=== PATIENT | male | born 1995 | race Caucasian/White ===

== ENCOUNTER 2016-06-07 18:06 | Emergency (ER) | payer OTHER ==
[~2016-06-07] VITALS: Ht 180.3 cm; Wt 89.3 kg
[2016-06-07 18:05] VITALS: Ht 180.3 cm; Wt 89.3 kg
[2016-06-07] MEDS ORDERED: LIDO/EPINEPHRINE/SOD BICARB 20 ML VIAL INFIL ONE (18:15)
--- NOTE | 2016-06-07 18:17 | EMERGENCY ROOM VISIT NOTE ---
History Report prepared by Eliana: Nick Engle Under the Supervision of: Dr. Mike López M.D. First contact with patient: 18:07 Chief Complaint: ALCOHOL OVERDOSE Stated Complaint: ETOH History of Present Illness The patient is a 19 year old male who presents to the Emergency Room via EMS with complaints of a persistent alcohol overdose that started prior to arrival today. The patient fell while intoxicated, and hit his face on the concrete ground and suffered a facial injury. He had a neck brace put on by EMS. He says that he fell because he was too drunk. The patient's friend who is here with him witnessed the fall. The patient's friend denies that the friend lost consciousness. The patient denies any neck pain, chest pain, wrist pain, knee pain or any other pain. He notes no chronic health issues. His tetanus status is current. Source of History: patient, friend Onset: Prior to arrival today Position: other (global - alcohol intoxication) Timing: other (persistent) Associated Symptoms: No LOC, No chest pain, No neck pain Note: Associated symptoms: Fell on face on concrete ground. Suffered facial injury. Denies wrist pain or any other pain. Review of Systems See HPI for pertinent positives & negatives. A total of 10 systems reviewed and were otherwise negative. Past Medical & Surgical Medical Problems: (1) No chronic problems Family History No pertinent family history Social History Smoking Status: Current Some Day Smoker Alcohol Use: occasionally Marital Status: single Housing Status: lives with roommate Occupation Status: employed Current/Historical Medications Scheduled Amoxicillin & Pot Clavulanate (Augmentin 875-125 mg), 875 MG PO BID Allergies Coded Allergies: No Known Allergies (Unverified , 06/07/16) Physical Exam Vital Signs Date Time Temp Pulse Resp B/P Pulse Ox O2 Delivery O2 Flow Rate FiO2 06/07/16 21:29 80 16 122/57 96 06/07/16 20:05 69 18 123/57 93 Room Air 06/07/16 18:05 91 18 154/83 97 Room Air Physical Exam GENERAL: Patient is in no acute distress. HEENT: Abrasion to tip of nose. Stellate 1.5 cm laceration to mid-lip that is not through and through. Upper lip is edematous. Fracture to the left upper 1st incisor, no bleeding at gumline. Lower teeth intact. 1 cm vertical laceration to mid left chin with associated abrasion. Pupils equal and reactive to light, no facial bony stepoff. No scalp hematomas. NECK: No posterior c-spine tenderness or step-offs. Stiff color removed. LUNGS: Clear to auscultation bilaterally, no wheeze, no rhonchi, breath sounds equal. HEART: Without murmurs gallops or rubs, regular rate and rhythm. ABDOMEN: Soft, nontender, bowel sounds positive, no hernias, no peritonitis. EXTREMITIES: No cyanosis or edema, full range of motion of all the joints without pain or difficulty, no signs for acute trauma. NEUROLOGIC: Awake and alert, moderately intoxicated with alcohol, no focal motor deficits. SKIN: No rash, no jaundice, no diaphoresis. Medical Decision & Procedures ER Provider Diagnostic Interpretation: CT results as stated below per my review and radiologist interpretation: CT FACIAL BONES-MXILLOFAC WITHOUT CT DOSE: 973.57 mGy.cm CLINICAL HISTORY: Facial pain status post trauma COMPARISON STUDY: No previous studies for comparison. TECHNIQUE: Helical images were acquired in the transverse plane. The study was reviewed and analyzed on the independent 3-D workstation. The pterygoid plates appear intact. The zygomatic arches appear intact. The globes appear intact. There is no evidence of orbital emphysema. The orbital miramontes and floor appear intact. The mandibular condyles appear intact. There is bilateral maxilla sinus mucosal thickening. IMPRESSION: No facial fractures identified. Electronically signed by: Pavan Garcia M.D. 06/07/2016 7:03 PM Dictated Date/Time: 06/07/2016 7:[address] HEAD WITHOUT CONTRAST (CT) CLINICAL HISTORY: Head pain status post trauma. Ethanol intoxication COMPARISON STUDY: No previous studies for comparison. TECHNIQUE: Axial CT of the brain is performed from the vertex to the skull base. IV contrast was not administered for this examination. CT DOSE: FINDINGS: No intra or extra-axial mass lesions are visualized. There is no CT evidence of acute cortical infarction. There is no evidence of midline shift. There is no acute hemorrhage. No calvarial fractures are visualized. There is mild disconjugate ocular gaze. There is no evidence of pathologic ventricular dilatation. There is a prominent cisterna magna. There is no evidence of acute sinusitis IMPRESSION: Mild disconjugate ocular gaze. Otherwise unremarkable noncontrast head CT. Electronically signed by: Pavan Garcia M.D. 06/07/2016 6:58 PM Dictated Date/Time: 06/07/2016 6:[address] OF THE CERVICAL SPINE CLINICAL HISTORY: Neck pain status post trauma COMPARISON STUDY: No previous studies for comparison. CT DOSE: TECHNIQUE: CT scan of the cervical spine was performed from the skull base to the thoracic inlet. Images are reviewed in the axial, sagittal, and coronal planes. IV contrast was not administered for this examination. FINDINGS: The visualized portions of the lung apices reveal no evidence of pneumothorax. The prevertebral soft tissues are normal. No fractures or subluxations are visualized. IMPRESSION: No evidence of acute fracture or traumatic subluxation. Electronically signed by: Pavan Garcia M.D. 06/07/2016 7:01 PM Dictated Date/Time: 06/07/2016 7:00 PM Laboratory Results 06/07/16 19:15 Test 06/07/16 19:15 Anion Gap 10.0 mmol/L (3-11) Est Creatinine Clear Calc Drug Dose 111.2 ml/min Estimated GFR () 109.1 Estimated GFR (Non- 94.1 BUN/Creatinine Ratio 7.7 (10-20) Calcium Level 8.1 mg/dl (8.5-10.1) Chemistry Specimen Hemolysis Ethyl Alcohol mg/dL 348.0 mg/dl (0-3) Laboratory results reviewed by me. Medications Administered Medications (Trade) Dose Ordered Sig/Fred Route Start Time Stop Time Status Last Admin Dose Admin Lidocaine/ Epinephrine (Buffered Xylocaine/ Epinephrine 1% Inj) 20 ml NOW ONCE INFIL 06/07/16 18:15 06/07/16 18:18 DC 06/07/16 19:00 20 ML Amoxicillin/ Clavulanate Potassium (Augmentin Tab) 875 mg NOW ONCE PO 06/07/16 19:30 06/07/16 19:31 DC 06/07/16 19:42 875 MG ED Course 1806: The patient was evaluated in room B11B. A complete history and physical exam was performed. 1814: Ordered Buffered Xylocaine/Epinephrine 1% Inj 20 ml INFIL. 1924: Brandie Ramos PA-C - did the lip laceration on the patient. 1929: Ordered Augmentin Tab 875 mg PO. 2008: I reevaluated the patient and he is sleeping right now. We are going to wait for his alcohol level. 2122: I reevaluated the patient and he is feeling fine and ready to go home. The patient verbally expressed understanding and agreement of the treatment plan. The patient will be discharged. Medical Decision Differential diagnosis includes but is not limited to facial fracture, c-spine fracture, intracranial bleeding or skull fracture, alcohol intoxication, dehydration, chest abdominal or extremity trauma. The patient presents after a fall. He had some lacerations to his face and he had a fracture to the left upper first incisor. He was drinking alcohol earlier and seemed intoxicated. I could not find evidence for injury to the chest, back, extremities. Brain CT shows no acute bleed or mass effect. C- spine CT shows no acute fracture. Facial CT shows no acute fracture. The patient was given oral Augmentin for antibiotic coverage. His wounds were cleansed and closed by my PA, please see her note. The patient is being discharged to follow with a dentist for his tooth fracture. Sutures of the face can be removed in 5-7 days. He will be on Augmentin to prevent infection. He can return for any worsening symptoms. The patient was told to keep his wounds clean and to watch for infection. He was told that his facial lacerations would scar. Impression Primary Impression: Alcohol overdose Additional Impressions: Facial trauma Dental fracture Fall Scribe Attestation The scribe's documentation has been prepared under my direction and personally reviewed by me in its entirety. I confirm that the note above accurately reflects all work, treatment, procedures, and medical decision making performed by me. Departure Information Dispostion Home / Self-Care Prescriptions Amoxicillin & Pot Clavulanate (Augmentin 875-125 mg) 1 Tab Tab 875 MG PO BID for 7 Days, #14 TAB Prov: Mike López M.D. 06/07/16 Forms HOME CARE DOCUMENTATION FORM, IMPORTANT VISIT INFORMATION Patient Instructions My [facility] Profitect Additional Instructions augmentin 2x per day for 1 week keep out of the sun to reduce scaring keep areas clean with soap and water sutures out in 5-7 days return for redness or worsening symptoms must see a dentist for your tooth harriet motrin or tylenol for pain these cuts will scar---consider seeing a plastic surgeon if you are unhappy with the result Problem Qualifiers
--- NOTE | 2016-06-07 19:00 | DIAGNOSTIC IMAGING REPORT ---
CT HEAD WITHOUT CONTRAST (CT) CLINICAL HISTORY: Head pain status post trauma. Ethanol intoxication COMPARISON STUDY: No previous studies for comparison. TECHNIQUE: Axial CT of the brain is performed from the vertex to the skull base. IV contrast was not administered for this examination. CT DOSE: FINDINGS: No intra or extra-axial mass lesions are visualized. There is no CT evidence of acute cortical infarction. There is no evidence of midline shift. There is no acute hemorrhage. No calvarial fractures are visualized. There is mild disconjugate ocular gaze. There is no evidence of pathologic ventricular dilatation. There is a prominent cisterna magna. There is no evidence of acute sinusitis IMPRESSION: Mild disconjugate ocular gaze. Otherwise unremarkable noncontrast head CT. Electronically signed by: Pavan Garcia M.D. 06/07/2016 6:58 PM Dictated Date/Time: 06/07/2016 6:56 PM
--- NOTE | 2016-06-07 19:03 | DIAGNOSTIC IMAGING REPORT ---
CT OF THE CERVICAL SPINE CLINICAL HISTORY: Neck pain status post trauma COMPARISON STUDY: No previous studies for comparison. CT DOSE: TECHNIQUE: CT scan of the cervical spine was performed from the skull base to the thoracic inlet. Images are reviewed in the axial, sagittal, and coronal planes. IV contrast was not administered for this examination. FINDINGS: The visualized portions of the lung apices reveal no evidence of pneumothorax. The prevertebral soft tissues are normal. No fractures or subluxations are visualized. IMPRESSION: No evidence of acute fracture or traumatic subluxation. Electronically signed by: Pavan Garcia M.D. 06/07/2016 7:01 PM Dictated Date/Time: 06/07/2016 7:00 PM
--- NOTE | 2016-06-07 19:05 | DIAGNOSTIC IMAGING REPORT ---
CT FACIAL BONES-MXILLOFAC WITHOUT CT DOSE: 973.57 mGy.cm CLINICAL HISTORY: Facial pain status post trauma COMPARISON STUDY: No previous studies for comparison. TECHNIQUE: Helical images were acquired in the transverse plane. The study was reviewed and analyzed on the independent 3-D workstation. The pterygoid plates appear intact. The zygomatic arches appear intact. The globes appear intact. There is no evidence of orbital emphysema. The orbital miramontes and floor appear intact. The mandibular condyles appear intact. There is bilateral maxilla sinus mucosal thickening. IMPRESSION: No facial fractures identified. Electronically signed by: Pavan Garcia M.D. 06/07/2016 7:03 PM Dictated Date/Time: 06/07/2016 7:01 PM
[2016-06-07] MEDS ORDERED: AMOXICILLIN/CLAVULANATE TAB 875 MG TAB PO ONE (19:30)
[2016-06-07 20:11] LABS: BUN/CREATININE RATIO 7.7 (10-20); CALCIUM 8.1 mg/dl (8.5-10.1); CREATININE 1.1 mg/dl (0.60-1.40); POTASSIUM 4.5 mmol/L (3.5-5.1)
[2016-06-07] MEDS ORDERED: AMOX875T PO (20:54)
[2016-06-07 21:29] VITALS: BP 122/57; PULSE 80; O2SAT 96
--- NOTE | 2016-06-08 01:37 | EMERGENCY ROOM VISIT NOTE ---
ED Visit Note I was asked by Dr. López to repair 2 lacerations to the patient's face. First, there is an irregular, divot like laceration in the area of the philtrum. It is not through and through. It does appear to be contaminated with dirt. This is approximately 1.5 cm. There is also a smaller slightly more superficial laceration to the chin that measures approximately 1 cm in length. First, the laceration of the Philtrum was repaired. Using sterile technique the wound was cleaned with Betadine. The area was sterilely draped. 3 ml of 1 % buffered lidocaine was used to anesthetize the skin. Once the patient was numb, the wound was copiously irrigated under pressure with sterile saline. The wound was explored and there were no deep structures such as tendons, bone, or ligaments present. The laceration was repaired using one pursestring 6-0 nylon suture and 3 simple interrupted 6-0 nylon sutures with the wound edges being fairly well approximated. The patient tolerated the procedure well. The bleeding stopped. Secondly, the laceration to the chin was repaired. Using sterile technique the wound was cleaned with Betadine. The area was sterilely draped. 1 ml of 1% buffered lidocaine was used to anesthetize the skin. Once the patient was numb , the wound was copiously irrigated under pressure with sterile saline. The wound was explored and there were no deep structures such as tendons, bone, or ligaments present. The laceration was repaired using 2 simple interrupted 6-0 nylon sutures with the wound edges being well approximated. The patient tolerated the procedure well. The bleeding stopped.
== END 2016-06-07 21:32 | disposition home or self-care (01) ==
LOC: C.EDB 18:09
DX: T51.0X1A Toxic effect of ethanol, accidental (unintentional), initial encounter (principal); S02.5XXA Fracture of tooth (traumatic), initial encounter for closed fracture; S01.81XA Laceration without foreign body of other part of head, initial encounter; W19.XXXA Unspecified fall, initial encounter; F17.210 Nicotine dependence, cigarettes, uncomplicated